=== PATIENT | male | born 1990 | race African-American/Black ===

== ENCOUNTER 2020-05-22 19:55 | Emergency (ER) | payer MEDICAID ==
[~2020-05-22] VITALS: Ht 190.5 cm; Wt 104.3 kg
[2020-05-23 00:09] VITALS: BP 128/73
== END 2020-05-23 00:29 | disposition home or self-care (01) ==
LOC: EDBD 19:55 → ER 20:01
DX: S92.355D Nondisplaced fracture of fifth metatarsal bone, left foot, subsequent encounter for fracture with routine healing (principal); W34.09XD Accidental discharge from other specified firearms, subsequent encounter
CPT/HCPCS: 73630; 93005; 93971

== ENCOUNTER 2020-08-22 14:22 | Emergency (ER) | payer MEDICAID ==
[~2020-08-22] VITALS: Ht 182.9 cm; Wt 113.4 kg
[2020-08-22] MEDS ORDERED: LORazepam 2MG/ML-1ML VIAL IV ONE (14:30)
[2020-08-22] MEDS ORDERED: SODIUM CHLORIDE 0.9% 1,000 ML IV ONE ×2 (14:30)
[2020-08-22 15:46] LABS: Basophils # (auto) 0.1 10 ^3/uL (0-0.2); Eosinophils # (auto) 0 10 ^3/uL (0-0.8); Eosinophils % (auto) 0.1 % (0.0-7.0); Hemoglobin 15.5 g/dL (13.5-17.5); Mean Corpuscular Hemoglobin 26.7 pg (28.0-32.0); Monocytes # (auto) 1.3 10 ^3/uL (0-1.3); Red Blood Cells 5.81 10^6/uL (4.5-5.90)
[2020-08-22 15:47] LABS: Basophils % (auto) 0.8 % (0.0-2.0); Hematocrit 45.7 % (41.0-53.0); Lymphocytes # (auto) 2.1 10 ^3/uL (0.4-5.4); Lymphocytes % (auto) 18.1 % (10.0-50.0); Mean Corpuscular Volume 78.7 fL (80.0-100.0); Monocytes % (auto) 11.2 % (0.0-12.0); Neutrophils # (auto) 8.2 10 ^3/uL (1.6-8.6); Neutrophils % (auto) 69.8 % (37.0-80.0); Nucleated Red Blood Cells % 0.9 %; Platelet Count (auto) 238 10^3/uL (140-450); Red Cell Distribution Width 15.4 % (11.8-14.3); White Blood Cell 11.8 10^3/uL (4.4-10.8)
[2020-08-22 16:04] LABS: Albumin 3.6 g/dL (3.4-5.0); Calcium 8.9 mg/dL (8.5-10.1)
[2020-08-22 16:09] LABS: BUN/Creatinine Ratio 13.4; Bilirubin, Total 1.2 mg/dL (0.2-1.0); Total Protein 8.6 g/dL (6.4-8.2)
[2020-08-22 16:15] LABS: Potassium 2.7 mmol/L (3.5-5.1)
[2020-08-22] MEDS ORDERED: POTASSIUM CHLORIDE 40 MEQ, LIDOCAINE 1% (LOCAL ANESTH.) 4 ML in SODIUM CHL 0.9% 250 ML IV ONE (16:30)
[2020-08-22 17:03] LABS: Urine Bacteria FEW /hpf (None Seen); Urine Blood Negative /uL (Negative); Urine Mucus FEW (None Seen); Urine Specific Gravity 1.015 (1.001-1.035); Urine WBC 2 /hpf (0 - 3)
[2020-08-22 17:07] VITALS: BP 152/97
[2020-08-22 17:20] LABS: Amphetamine Screen, Urine POSITIVE (NEGATIVE); Barbiturate Scree,Urine NEGATIVE (NEGATIVE); Benzodiazephine Screen, Urine NEGATIVE (NEGATIVE); Cannabinoid Screen, Urine NEGATIVE (NEGATIVE); Cocaine Screen, Urine NEGATIVE (NEGATIVE); Opiate Scree,Urine NEGATIVE (NEGATIVE); Phencyclidine Screen, Urine NEGATIVE (NEGATIVE)
[2020-08-22] MEDS ORDERED: POTASSIUM EFFERVESENT TAB 25 MEQ PO ONE (17:30)
== END 2020-08-22 19:20 | disposition home or self-care (01) ==
LOC: ER 14:22 → EDBD 14:22 → ER 19:20
DX: E87.6 Hypokalemia (principal); R77.8 Other specified abnormalities of plasma proteins; F14.90 Cocaine use, unspecified, uncomplicated; F17.210 Nicotine dependence, cigarettes, uncomplicated
CPT/HCPCS: 36415; 71045; 80053; 80307; 81001; 84484; 85025; 96361; 96365; 96366; 96375; 99285; J2001; J2060; J3480; J7030; J7050